=== PATIENT | male | born 2000 | race Caucasian/White ===

== ENCOUNTER 2019-08-02 23:10 | Emergency (ER) | payer OTHER ==
[~2019-08-02] VITALS: Ht 190.5 cm; Wt 108.9 kg
[2019-08-02 23:58] LABS: Basophils # (auto) 0.1 uL; Basophils % (auto) 0.3 % (0.0-2.0); Eosinophils # (auto) 0 uL; Hematocrit 43.4 % (41.0-53.0); Hemoglobin 14.8 g/dL (13.5-17.5); Lymphocytes # (auto) 0.5 uL; Lymphocytes % (auto) 3.1 % (10.0-50.0); Mean Corpuscular Hemoglobin 29.6 pg (28.0-32.0); Mean Corpuscular Hgb Conc. 34.2 g/dL (32.0-36.0); Mean Corpuscular Volume 86.7 fL (80.0-100.0); Monocytes # (auto) 0.7 uL; Monocytes % (auto) 4.5 % (0.0-12.0); Neutrophils % (auto) 92.1 % (37.0-80.0); Platelet Count (auto) 234 10^3/uL (140-450); Red Cell Distribution Width 12.6 % (11.8-14.3); White Blood Cell 16.3 10^3/uL (4.4-10.8)
[2019-08-03 00:16] LABS: Alanine Aminotransferase 20 U/L (16-61); Anion Gap 8 (5-15); Aspartate Aminotransferase 12 U/L (15-37); BUN/Creatinine Ratio 12.5; Blood Alcohol < 3.0 mg/dL (0-5); Blood Urea Nitrogen 11 mg/dL (7-18); Calcium 8.7 mg/dL (8.5-10.1); Carbon Dioxide 22 mmol/L (21-32); Chloride 104 mmol/L (98-107); GFR African American 143 mL/min; GFR Non-African American 119 mL/min; Glucose 109 mg/dL (74-106); Potassium 3.9 mmol/L (3.5-5.1); Sodium 134 mmol/L (136-145)
[2019-08-03 00:19] LABS: Alkaline Phosphatase 83 U/L (45-117); Bilirubin, Total 1.2 mg/dL (0.2-1.0)
[2019-08-03 01:16] LABS: Urine WBC None Seen /hpf (0 - 3)
[2019-08-03 01:31] LABS: Urine Bacteria NONE SEEN /hpf (None Seen); Urine Blood Negative /uL (Negative); Urine Specific Gravity 1.008 (1.001-1.035)
[2019-08-03 01:47] LABS: Alcohol, Urine < 3.0 mg/dL (0-5); Amphetamine Screen, Urine NEGATIVE (NEGATIVE); Barbiturate Scree,Urine NEGATIVE (NEGATIVE); Benzodiazephine Screen, Urine NEGATIVE (NEGATIVE); Cocaine Screen, Urine NEGATIVE (NEGATIVE); Opiate Scree,Urine NEGATIVE (NEGATIVE); Phencyclidine Screen, Urine NEGATIVE (NEGATIVE)
[2019-08-03] MEDS ORDERED: LORazepam 2MG/ML-1ML VIAL IV ONE (02:15)
[2019-08-03] MEDS ORDERED: LORazepam 2MG/ML-1ML VIAL ONE (02:16)
[2019-08-03 02:19] LABS: Cannabinoid Screen, Urine POSITIVE (NEGATIVE)
[2019-08-03] MEDS ORDERED: SODIUM CHLORIDE 0.9% 1,000 ML IV ONE (02:30)
[2019-08-03 03:50] VITALS: BP 111/61
[2019-08-03] MEDS ORDERED: levETIRAcetam 500 MG/5ML INJ IV ONE (05:13)
== END 2019-08-03 06:09 | disposition home or self-care (01) ==
LOC: EDBD 23:10 → ER 23:10
DX: G40.909 Epilepsy, unspecified, not intractable, without status epilepticus (principal); M54.2 Cervicalgia; R41.0 Disorientation, unspecified
CPT/HCPCS: 36415; 70450; 71045; 80053; 80307; 80320; 81001; 85025; 96361; 96365; 96375; 99284; J1953; J2060; J7030; J7060